=== PATIENT | female | born 1960 | race American Indian/Alaskan Native ===

== ENCOUNTER 2018-02-11 18:53 | Emergency (ER) | payer SELFPAY ==
[2018-02-11 19:07] VITALS: BP 159/102
[2018-02-11] MEDS ORDERED: NORCO 5/325 PO ONE (22:44)
[2018-02-11] MEDS ORDERED: AUGMENTIN 875 MG PO ONE (22:44)
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
== END 2018-02-11 23:20 | disposition home or self-care (01) ==
LOC: ED 18:53
DX: S61.452A Open bite of left hand, initial encounter (principal); I10 Essential (primary) hypertension; Z98.51 Tubal ligation status; W50.3XXA Accidental bite by another person, initial encounter; Y93.89 Activity, other specified; Y92.89 Other specified places as the place of occurrence of the external cause; Y99.8 Other external cause status
CPT/HCPCS: 99283